=== PATIENT | female | born 1940 | race Hispanic/Latino ===

== ENCOUNTER 2022-09-30 17:59 | Inpatient (IN) | payer MEDICARE ==
[~2022-09-30] VITALS: Ht 165.1 cm; Wt 47.6 kg
[2022-09-30] MEDS ORDERED: ENOXAPARIN SOD INJ 60 MG/0.6 ML SYR SC STA (19:48)
[2022-09-30 20:00] VITALS: BP 101/56; PULSE 73; RESP 17; TEMP 97.9; O2SAT 98
[2022-09-30] MEDS ORDERED: ASPIRIN 325 MG TAB PO ONE (20:00)
[2022-09-30] MEDS ORDERED: DEXTROSE 50% SYRINGE 50 ML IV PRN (20:00)
[2022-09-30] MEDS ORDERED: SODIUM CHLORIDE 0.9% 100 ML IV SCH (20:00)
[2022-09-30] MEDS ORDERED: SODIUM CHLORIDE 0.9% 1000ML 1,000 ML ONE (20:38)
[2022-09-30] MEDS: INSULIN LISPRO 100 UNIT/1 ML 3ML VIAL SQ SCH (21:08)
[2022-09-30 21:29] LABS: BASOPHILS % 0.1 % (0.0-1.0); EOSINOPHILS % 0.1 % (0.0-6.0); HEMATOCRIT 31.3 % (34.2-44.1); HEMOGLOBIN 10.8 g/dL (12.0-16.0); LYMPHOCYTES # (AUTO) 0.4 (1.0-3.2); LYMPHOCYTES % 3.3 % (18.0-39.1); MEAN CORPUSCULAR HEMOGLOBIN 30.3 pg (28-32); MEAN CORPUSCULAR HGB CONC 34.5 g/dL (31-35); MEAN CORPUSCULAR VOLUME 87.9 fL (81-99); MONOCYTES # (AUTO) 0.5 (0.2-0.8); MONOCYTES % 4.2 % (4.4-11.3); NEUTROPHILS # (AUTO) 10.9 (2.1-6.9); NEUTROPHILS % 91.5 % (38.7-80.0); PLATELET COUNT 197 x10e3/uL (140-360); RED BLOOD COUNT 3.56 x10e6/uL (3.6-5.1); RED CELL DISTRIBUTION WIDTH 12.4 % (11.7-14.4)
[2022-09-30 21:48] LABS: ALBUMIN 2.5 g/dL (3.5-5.0); ALBUMIN/GLOBULIN RATIO 0.8 (0.8-2.0); ANION GAP 13.5 mmol/L (8-16); CALCIUM 8.1 mg/dL (8.4-10.2); CREATINE KINASE 401 IU/L (29-168); CREATININE, SERUM 1.3 mg/dL (0.57-1.11); POTASSIUM 3.5 mmol/L (3.5-5.1)
[2022-09-30] MEDS ORDERED: ACETAMINOPHEN 325 MG TAB PO PRN (23:00)
[2022-09-30] MEDS ORDERED: HYDROCODONE/APAP 5MG-325MG TAB PO PRN (23:00)
[2022-09-30] MEDS: SODIUM CHLORIDE 0.9% 1000ML 1,000 ML IV SCH (23:14)
[2022-09-30] MEDS ORDERED: IOPAMIDOL 370 MG/ML 100 ML INFUS..BTL INJ ONE (23:27)
[2022-09-30] MEDS ORDERED: LOSARTAN POTASS25 MG PO (23:37)
[2022-09-30] MEDS ORDERED: NOVOLOG100 UNITS1 SC (23:37)
[2022-09-30] MEDS ORDERED: CEFTRIAXONE 1 GM VIAL IM ONE (23:45)
[2022-10-01] VITALS (10 sets, daily range): BP systolic 99–109; BP diastolic 56–73; PULSE 64–85; RESP 16–20; TEMP 97.7–99.7; O2SAT 94–100
[2022-10-01 06:53] LABS: BASOPHILS # (AUTO) 0.1 (0.0-0.1); BASOPHILS % 0.6 % (0.0-1.0); HEMATOCRIT 30.9 % (34.2-44.1); HEMOGLOBIN 10.2 g/dL (12.0-16.0); LYMPHOCYTES # (AUTO) 0.4 (1.0-3.2); LYMPHOCYTES % 3.4 % (18.0-39.1); MEAN CORPUSCULAR HEMOGLOBIN 30.4 pg (28-32); MONOCYTES # (AUTO) 0.8 (0.2-0.8); MONOCYTES % 7.3 % (4.4-11.3); NEUTROPHILS # (AUTO) 9.4 (2.1-6.9); NEUTROPHILS % 87.8 % (38.7-80.0); PLATELET COUNT 198 x10e3/uL (140-360); RED BLOOD COUNT 3.36 x10e6/uL (3.6-5.1); RED CELL DISTRIBUTION WIDTH 12.4 % (11.7-14.4)
[2022-10-01 07:21] LABS: ALBUMIN 2.2 g/dL (3.5-5.0); ALBUMIN/GLOBULIN RATIO 0.8 (0.8-2.0); ANION GAP 12.7 mmol/L (8-16); CALCIUM 7.7 mg/dL (8.4-10.2); CREATININE, SERUM 1.29 mg/dL (0.57-1.11); POTASSIUM 3.7 mmol/L (3.5-5.1)
[2022-10-01] MEDS: INSULIN LISPRO 100 UNIT/1 ML 3ML VIAL SQ SCH ×4 (08:24→21:00)
[2022-10-01] MEDS: SODIUM CHLORIDE 0.9% 1000ML 1,000 ML IV SCH ×2 (08:24→17:05)
[2022-10-01] MEDS ORDERED: HYDRALAZINE HCL 20 MG/ML VIAL IV PRN (12:00)
[2022-10-01] MEDS ORDERED: SENNA-S TABLET PO PRN (12:00)
[2022-10-01] MEDS ORDERED: ACETAMINOPHEN 325 MG TAB PO PRN (12:00)
[2022-10-01] MEDS ORDERED: BISACODYL 10 MG SUPP PR PRN (12:00)
[2022-10-01] MEDS ORDERED: ONDANSETRON HCL INJ 2MG/ML 2ML 2 MG/ML VIAL IV PRN (12:00)
[2022-10-01] MEDS ORDERED: IOPAMIDOL 370 MG/ML 100 ML INFUS..BTL INJ ONE (13:54)
[2022-10-01] MEDS: DOCUSATE SODIUM 100 MG CAP PO SCH (17:05)
[2022-10-01] MEDS: FAMOTIDINE 20 MG TAB PO SCH (17:05)
[2022-10-01] MEDS: POLYETHYLENE GLYCOL 3350 17 GM PACK PO SCH (17:05)
[2022-10-02] VITALS (12 sets, daily range): BP systolic 110–162; BP diastolic 58–88; PULSE 79–108; RESP 16–22; TEMP 97.8–99.2; O2SAT 92–99
[2022-10-02] MEDS: SODIUM CHLORIDE 0.9% 1000ML 1,000 ML IV SCH (05:11)
[2022-10-02 06:35] LABS: BASOPHILS % 0.4 % (0.0-1.0); EOSINOPHILS % 0.1 % (0.0-6.0); HEMATOCRIT 31.7 % (34.2-44.1); HEMOGLOBIN 10.7 g/dL (12.0-16.0); LYMPHOCYTES # (AUTO) 0.7 (1.0-3.2); LYMPHOCYTES % 8.8 % (18.0-39.1); MEAN CORPUSCULAR HEMOGLOBIN 30.2 pg (28-32); MEAN CORPUSCULAR HGB CONC 33.8 g/dL (31-35); MEAN CORPUSCULAR VOLUME 89.5 fL (81-99); MONOCYTES # (AUTO) 0.8 (0.2-0.8); MONOCYTES % 9.4 % (4.4-11.3); NEUTROPHILS # (AUTO) 6.4 (2.1-6.9); NEUTROPHILS % 79.3 % (38.7-80.0); PLATELET COUNT 236 x10e3/uL (140-360); RED BLOOD COUNT 3.54 x10e6/uL (3.6-5.1); RED CELL DISTRIBUTION WIDTH 12.8 % (11.7-14.4)
[2022-10-02 06:53] LABS: ALBUMIN 2.1 g/dL (3.5-5.0); ALBUMIN/GLOBULIN RATIO 0.7 (0.8-2.0); ANION GAP 15.5 mmol/L (8-16); CALCIUM 7.8 mg/dL (8.4-10.2); CHOL/HDL RATIO 5.2 (3.0-3.6); CREATININE, SERUM 1.17 mg/dL (0.57-1.11); PHOSPHORUS 2.6 MG/DL (2.3-4.7); POTASSIUM 3.5 mmol/L (3.5-5.1)
[2022-10-02 07:15] LABS: THYROID STIMULATING HORMONE 0.361 uIU/mL (0.350-4.940)
[2022-10-02] MEDS: INSULIN LISPRO 100 UNIT/1 ML 3ML VIAL SQ SCH ×4 (07:30→20:57)
[2022-10-02] MEDS: FAMOTIDINE 20 MG TAB PO SCH ×2 (08:08→16:36)
[2022-10-02] MEDS: DOCUSATE SODIUM 100 MG CAP PO SCH ×2 (09:55→16:36)
[2022-10-02] MEDS: POLYETHYLENE GLYCOL 3350 17 GM PACK PO SCH ×2 (09:55→16:36)
[2022-10-02 15:46] LABS: ALBUMIN 2.3 g/dL (3.5-5.0); ALBUMIN/GLOBULIN RATIO 0.7 (0.8-2.0); ANION GAP 12.7 mmol/L (8-16); CALCIUM 8.1 mg/dL (8.4-10.2); CREATININE, SERUM 1.06 mg/dL (0.57-1.11); POTASSIUM 3.7 mmol/L (3.5-5.1)
[2022-10-02] MEDS ORDERED: FUROSEMIDE INJ 10 MG/ML 4 ML VIAL IV STA (21:51)
[2022-10-02] MEDS: ALBUTEROL/IPRATROPIUM 3 ML NEB NEB SCH (22:00)
[2022-10-03] VITALS (13 sets, daily range): BP systolic 105–119; BP diastolic 47–66; PULSE 69–94; RESP 16–20; TEMP 97.4–99.1; O2SAT 97–100
[2022-10-03] MEDS: ALBUTEROL/IPRATROPIUM 3 ML NEB NEB SCH ×6 (02:40→23:20)
[2022-10-03 05:53] LABS: BASOPHILS # (AUTO) 0.1 (0.0-0.1); BASOPHILS % 0.6 % (0.0-1.0); EOSINOPHILS % 0.1 % (0.0-6.0); HEMATOCRIT 28.9 % (34.2-44.1); HEMOGLOBIN 9.8 g/dL (12.0-16.0); LYMPHOCYTES # (AUTO) 1.3 (1.0-3.2); MEAN CORPUSCULAR HGB CONC 33.9 g/dL (31-35); MEAN CORPUSCULAR VOLUME 88.4 fL (81-99); MONOCYTES # (AUTO) 1.3 (0.2-0.8); NEUTROPHILS # (AUTO) 5.7 (2.1-6.9); NEUTROPHILS % 63.7 % (38.7-80.0); PLATELET COUNT 259 x10e3/uL (140-360); RED BLOOD COUNT 3.27 x10e6/uL (3.6-5.1)
[2022-10-03] MEDS ORDERED: FUROSEMIDE INJ 10 MG/ML 4 ML VIAL IV ONE (06:00)
[2022-10-03 06:28] LABS: ALBUMIN 2.2 g/dL (3.5-5.0); ALBUMIN/GLOBULIN RATIO 0.7 (0.8-2.0); ANION GAP 13.1 mmol/L (8-16); CALCIUM 8.1 mg/dL (8.4-10.2); CREATININE, SERUM 1.05 mg/dL (0.57-1.11); POTASSIUM 3.1 mmol/L (3.5-5.1)
[2022-10-03] MEDS: AZITHROMYCIN 250 MG TAB PO SCH (08:45)
[2022-10-03] MEDS: FAMOTIDINE 20 MG TAB PO SCH ×2 (08:45→16:28)
[2022-10-03] MEDS: DOCUSATE SODIUM 100 MG CAP PO SCH ×3 (08:45→21:00)
[2022-10-03] MEDS: POLYETHYLENE GLYCOL 3350 17 GM PACK PO SCH ×2 (08:45→16:28)
[2022-10-03] MEDS ORDERED: POTASSIUM CHLORIDE 20 MEQ TAB CR PO STA (08:48)
[2022-10-03] MEDS ORDERED: LOSARTAN POTASSIUM 25 MG TAB PO SCH (09:00)
[2022-10-03] MEDS: INSULIN LISPRO 100 UNIT/1 ML 3ML VIAL SQ SCH ×4 (09:08→21:58)
[2022-10-03] MEDS ORDERED: SENNA-S TABLET PO ONE (10:30)
[2022-10-03] MEDS ORDERED: BISACODYL 10 MG SUPP PR ONE (11:00)
[2022-10-03] MEDS ORDERED: ONDANSETRON HCL 4 MG ORAL DISINTEGRATING TAB PO PRN (11:15)
[2022-10-04] VITALS (7 sets, daily range): BP systolic 111–120; BP diastolic 52–65; PULSE 74–93; RESP 15–20; TEMP 97.7–99.2; O2SAT 98–100
[2022-10-04] MEDS: ALBUTEROL/IPRATROPIUM 3 ML NEB NEB SCH ×3 (03:25→10:30)
[2022-10-04 05:47] LABS: BASOPHILS # (AUTO) 0.1 (0.0-0.1); BASOPHILS % 0.7 % (0.0-1.0); EOSINOPHILS # (AUTO) 0.1 (0.0-0.4); EOSINOPHILS % 0.6 % (0.0-6.0); HEMATOCRIT 28.5 % (34.2-44.1); HEMOGLOBIN 9.5 g/dL (12.0-16.0); LYMPHOCYTES # (AUTO) 1.3 (1.0-3.2); MEAN CORPUSCULAR HEMOGLOBIN 29.9 pg (28-32); MEAN CORPUSCULAR HGB CONC 33.3 g/dL (31-35); MEAN CORPUSCULAR VOLUME 89.6 fL (81-99); MONOCYTES # (AUTO) 1.3 (0.2-0.8); MONOCYTES % 14.4 % (4.4-11.3); NEUTROPHILS # (AUTO) 5.2 (2.1-6.9); NEUTROPHILS % 57.7 % (38.7-80.0); PLATELET COUNT 278 x10e3/uL (140-360); RED BLOOD COUNT 3.18 x10e6/uL (3.6-5.1); RED CELL DISTRIBUTION WIDTH 13.2 % (11.7-14.4)
[2022-10-04 06:21] LABS: ANION GAP 12.6 mmol/L (8-16); CALCIUM 8.2 mg/dL (8.4-10.2); CREATININE, SERUM 0.89 mg/dL (0.57-1.11); MAGNESIUM 1.8 MG/DL (1.3-2.1); POTASSIUM 3.6 mmol/L (3.5-5.1)
[2022-10-04 06:38] LABS: PHOSPHORUS 2.2 MG/DL (2.3-4.7)
[2022-10-04] MEDS: AZITHROMYCIN 250 MG TAB PO SCH (08:51)
[2022-10-04] MEDS: FAMOTIDINE 20 MG TAB PO SCH (08:51)
[2022-10-04] MEDS: DOCUSATE SODIUM 100 MG CAP PO SCH (08:51)
[2022-10-04] MEDS: POLYETHYLENE GLYCOL 3350 17 GM PACK PO SCH (08:52)
[2022-10-04] MEDS: INSULIN LISPRO 100 UNIT/1 ML 3ML VIAL SQ SCH (09:07)
[2022-10-04] MEDS ORDERED: SODIUM CHLORIDE 452MG TAB PO ONE (11:45)
== END 2022-10-04 12:48 | disposition home or self-care (01) | DRG 194 ==
LOC: INTOOBSV 17:59 → MED/SURG2 17:59 → OBSVTOIN 10-03 08:52
PROVIDERS: ADMIT Internal Medicine; ATTEND Internal Medicine
DX: J18.9 Pneumonia, unspecified organism (principal); E87.1 Hypo-osmolality and hyponatremia; N39.0 Urinary tract infection, site not specified; E86.0 Dehydration; E11.65 Type 2 diabetes mellitus with hyperglycemia; R07.9 Chest pain, unspecified; R10.9 Unspecified abdominal pain; Z20.822 Contact with and (suspected) exposure to COVID-19; Z79.4 Long term (current) use of insulin
CPT/HCPCS: 36415; 71045; 71260; 74177; 80048; 80053; 80061; 82550; 82948; 83036; 83735; 83880; 84100; 84443; 84484; 85025; 87086; 94640; 94799; 96361; G0378; J0696; J1650; J1940; J7030; J7050; Q9967